=== PATIENT | male | born 1990 | race Caucasian/White ===

== ENCOUNTER 2019-06-06 09:33 | Emergency (ER) | payer OTHER ==
[~2019-06-06] VITALS: Ht 180.3 cm; Wt 94.3 kg
[2019-06-06 09:33] VITALS: BP 150/69
[2019-06-06] MEDS ORDERED: LIDOCAINE 1% SDV 5 ML VIAL DILUENT ONE (10:00)
[2019-06-06] MEDS ORDERED: cefTRIAXone SOD 250 MG VIAL (J0696) IM ONE (10:00)
[2019-06-06] MEDS ORDERED: AZITHROMYCIN 250 MG TAB PO ONE (10:00)
[2019-06-06 11:32] LABS: CHLAMYDIA DNA AMPLIFICATION NEGATIVE (NEGATIVE); GC DNA AMPLIFICATION NEGATIVE (NEGATIVE)
== END 2019-06-06 10:07 | disposition home or self-care (01) ==
LOC: M ED 09:33
DX: J30.9 Allergic rhinitis, unspecified (principal); R36.9 Urethral discharge, unspecified; F17.200 Nicotine dependence, unspecified, uncomplicated
CPT/HCPCS: 87661; 99283; J0696